=== PATIENT | female | born 1980 | race African-American/Black ===

== ENCOUNTER 2018-11-19 23:18 | Inpatient (IN) | payer MEDICAID ==
[~2018-11-19] VITALS: Ht 170.2 cm; Wt 84.8 kg
[2018-11-20] MEDS ORDERED: NALOXONE HCL 0.4 MG/ML 1ML VIAL IM PRN (03:45)
[2018-11-20] MEDS ORDERED: LIDOCAINE HCL 1% 20ML VIAL (Pyxis) INJ INFIL SCH (03:45)
[2018-11-20] MEDS ORDERED: BUTORPHANOL TARTRATE 2 MG/ML VIAL IV PRN (03:45)
[2018-11-20] MEDS: LACTATED RINGERS 1,000 ML IV SCH ×2 (04:12→08:46)
[2018-11-20] MEDS ORDERED: PENICILLIN G POTASSIUM 5 MMU in DEXT 5% WATER 100 ML IV SCH (04:15)
[2018-11-20 04:43] LABS: INR 0.9; PARTIAL THROMBOPLASTIN TIME 22.3 sec (23.4-31.0); PROTHROMBIN TIME 9.6 sec (9.6-11.0)
[2018-11-20 04:44] LABS: CLARITY URINE CLEAR (CLEAR); COLOR URINE YELLOW (YELLOW); KETONES URINE NEGATIVE (NEGATIVE); LEUKOCYTE ESTERASE URINE 1+ (NEGATIVE); NITRITE URINE NEGATIVE (NEGATIVE); OCCULT BLOOD URINE NEGATIVE (NEGATIVE); PH URINE 5.5 (4.5-8.0); PROTEIN URINE NEGATIVE (NEGATIVE); SPECIFIC GRAVITY URINE 1.017 (1.005-1.030)
[2018-11-20 04:55] LABS: HEMATOCRIT. 28.6 % (36.0-48.0); HEMOGLOBIN. 9.1 g/dL (12.0-16.0); MEAN CORPUSCULAR HEMOGLOBIN 24.3 pg (28.0-32.0); MEAN CORPUSCULAR VOLUME 76.6 fL (81.0-99.0); MEAN PLATELET VOLUME 8.7 fl (7.4-10.4); PLATELET 222 x1000/uL (130-400); RED BLOOD CELL COUNT 3.74 mill/uL (4.2-5.4); RED CELL DISTRIBUTION WIDTH 18.7 % (11.6-14.6)
[2018-11-20 05:02] LABS: *AMPHETAMINES SCREEN URINE NEGATIVE (NEGATIVE); *BARBITURATES SCREEN URINE NEGATIVE (NEGATIVE); *BENZODIAZEPINES SCREEN URINE NEGATIVE (NEGATIVE)
[2018-11-20 05:03] LABS: *COCAINE SCREEN URINE NEGATIVE (NEGATIVE); METHADONE URINE SCREEN NEGATIVE (NEGATIVE); OPIATES URINE SCREEN NEGATIVE (NEGATIVE); PHENCYCLIDINE URINE SCREEN NEGATIVE (NEGATIVE)
[2018-11-20 05:04] LABS: CANNABINOID URINE SCREEN NEGATIVE (NEGATIVE)
[2018-11-20 05:10] LABS: HEPATITIS B SURFACE ANTIGEN NEGATIVE
[2018-11-20 06:02] LABS: NUCLEATED RED BLOOD CELLS 1 /100 WBC
[2018-11-20 06:03] LABS: PLATELET ESTIMATE NORMAL
[2018-11-20] MEDS ORDERED: PENICILLIN G POTASSIUM 2.5 MMU in DEXTROSE 5% WATER 50 ML IV SCH (08:00)
[2018-11-20] MEDS ORDERED: CITRIC ACID/SODIUM CITRATE SOLN 30ML UDC PO NR (08:39)
[2018-11-20] MEDS ORDERED: MORPHINE SULFATE/PF 1MG/ML 10ML AMP ONE (09:12)
[2018-11-20] MEDS ORDERED: FENTANYL CITRATE/PF 50MCG/ML 2ML VIAL ONE ×3 (09:12→09:40)
[2018-11-20] MEDS ORDERED: KETAMINE HCL 50 MG/ML 10ML ONE (09:22)
[2018-11-20] MEDS ORDERED: MIDAZOLAM HCL 2 MG/2 ML VIAL ONE ×3 (09:29→09:56)
[2018-11-20] MEDS ORDERED: PROPOFOL 200MG/20ML VIAL IV ONE (09:56)
[2018-11-20] MEDS ORDERED: HYDROMORPHONE HCL/PF 2MG/ML (OR) ONE (10:05)
[2018-11-20] MEDS ORDERED: HYDROMORPHONE HCL/PF 2MG/ML CPJ IM PRN (10:15)
[2018-11-20] MEDS ORDERED: LANOLIN OINT 7GM TUBE TOP PRN (10:15)
[2018-11-20] MEDS ORDERED: BISACODYL 10MG SUPP PR PRN (10:15)
[2018-11-20] MEDS ORDERED: INFLUENZA VIRUS VACCINE(AFLURIA) 0.5ML SYR IM ONE (10:15)
[2018-11-20] MEDS ORDERED: ONDANSETRON HCL 4MG/2ML INJ IV PRN ×2 (10:15→10:45)
[2018-11-20] MEDS ORDERED: IBUPROFEN 400MG TABLET PO PRN (10:15)
[2018-11-20] MEDS ORDERED: HYDROCODONE/ACETAMINOPHEN 5/325MG TABLET PO PRN (10:15)
[2018-11-20] MEDS ORDERED: TETANUS, DIPHTHERIA, PERTUSSIS VAC/PF 0.5ML (>7YR OLD) IM ONE (10:15)
[2018-11-20] MEDS ORDERED: DIPHENHYDRAMINE 25MG CAPSULE PO PRN (10:15)
[2018-11-20] MEDS ORDERED: MEPERIDINE HCL/PF 25MG/ML CPJ IV PRN (10:45)
[2018-11-20] MEDS ORDERED: HYDROMORPHONE HCL/PF 2MG/ML CPJ IV PRN (10:45)
[2018-11-20] MEDS ORDERED: LABETALOL 5MG/ML SYR 20 MG/4 ML SYRINGE IV PRN (10:45)
[2018-11-20] MEDS: KETOROLAC 15MG/ML VIAL IV PRN ×2 (12:32→18:31)
[2018-11-20 13:00] VITALS: BP 111/68
[2018-11-20 13:07] LABS: BG BASE EXCESS -4.5 mmol/L (-2.0-2.0); BG FRACTION INSPIRED OXYGEN 21; BG HCO3 ACT 21.4 mmol/L (22.0-26.0); BG PCO2 42.6 mmHg (35.0-45.0); BG PH 7.319 (7.350-7.450); BG PO2 < 30.3 mmHg (75.0-100.0); BG SAMPLE SITE CORD; BG VENT MODE ROOM AIR
[2018-11-20 13:08] LABS: BG BASE EXCESS -3.8 mmol/L (-2.0-2.0); BG FRACTION INSPIRED OXYGEN 21; BG HCO3 ACT 21.4 mmol/L (22.0-26.0); BG OXYGEN SATURATION 69.3 % (92.0-98.5); BG PCO2 39.3 mmHg (35.0-45.0); BG PH 7.353 (7.350-7.450); BG PO2 37.7 mmHg (75.0-100.0); BG SAMPLE SITE CORD; BG VENT MODE ROOM AIR
[2018-11-20 13:15] VITALS: BP 114/73
[2018-11-20 13:30] VITALS: BP 105/61
[2018-11-20] MEDS: DEXT 5%/LR + PITOCIN 20UNITS/L 1,000 ML IV SCH ×2 (14:55→22:49)
[2018-11-20 16:00] VITALS: BP 116/76
[2018-11-20] MEDS: MAGNESIUM/ALUMINUM HYDROXIDE/SIMETHICONE 30ML UDC PO SCH (17:30)
[2018-11-20] MEDS: SIMETHICONE 80MG TABLET CHEW PO SCH (18:00)
[2018-11-20 21:15] VITALS: BP 132/75
[2018-11-21] MEDS: KETOROLAC 15MG/ML VIAL IV PRN (03:28)
[2018-11-21 04:00] VITALS: BP 126/78
[2018-11-21 08:00] VITALS: BP 112/69
[2018-11-21] MEDS: IBUPROFEN 800MG TABLET PO PRN ×4 (08:42→21:55)
[2018-11-21] MEDS: PRENATAL VIT/FE FUMARATE/FA TABLET PO SCH (08:42)
[2018-11-21] MEDS: SIMETHICONE 80MG TABLET CHEW PO SCH ×5 (08:42→21:09)
[2018-11-21] MEDS: FERROUS SULFATE 325MG TABLET PO SCH ×3 (08:42→18:16)
[2018-11-21] MEDS: MAGNESIUM/ALUMINUM HYDROXIDE/SIMETHICONE 30ML UDC PO SCH ×5 (08:43→21:09)
[2018-11-21 09:11] LABS: BASOPHILS % 0.4 % (0.0-2.0); EOSINOPHILS % 1.3 % (0.0-5.0); HEMATOCRIT. 24.6 % (36.0-48.0); HEMOGLOBIN. 7.7 g/dL (12.0-16.0); LYMPHOCYTES % 7.4 % (20.0-50.0); MEAN CORPUSCULAR HEMOGLOBIN 23.8 pg (28.0-32.0); MEAN CORPUSCULAR VOLUME 76.2 fL (81.0-99.0); MEAN PLATELET VOLUME 8.7 fl (7.4-10.4); MONOCYTES % 5.2 % (2.0-8.0); NEUTROPHILS % 85.7 % (40.0-76.0); PLATELET 178 x1000/uL (130-400); RED BLOOD CELL COUNT 3.23 mill/uL (4.2-5.4); RED CELL DISTRIBUTION WIDTH 18.9 % (11.6-14.6)
[2018-11-21 16:00] VITALS: BP 96/62
[2018-11-21] MEDS: DEXT 5%/LR + PITOCIN 20UNITS/L 1,000 ML IV SCH ×3 (19:31→20:43)
[2018-11-21 20:16] VITALS: BP 110/70
[2018-11-21] MEDS: DOCUSATE SODIUM 100MG CAPSULE PO SCH (21:09)
[2018-11-22] MEDS: DEXT 5%/LR + PITOCIN 20UNITS/L 1,000 ML IV SCH ×3 (02:15→11:31)
[2018-11-22 04:29] VITALS: BP 110/67
[2018-11-22 08:00] VITALS: BP 109/69
[2018-11-22] MEDS: IBUPROFEN 800MG TABLET PO PRN ×2 (10:07→17:10)
[2018-11-22] MEDS: PRENATAL VIT/FE FUMARATE/FA TABLET PO SCH (10:07)
[2018-11-22] MEDS: FERROUS SULFATE 325MG TABLET PO SCH ×3 (10:07→17:10)
[2018-11-22] MEDS: MAGNESIUM/ALUMINUM HYDROXIDE/SIMETHICONE 30ML UDC PO SCH ×4 (10:07→20:56)
[2018-11-22] MEDS: SIMETHICONE 80MG TABLET CHEW PO SCH ×4 (10:08→20:56)
[2018-11-22 12:00] VITALS: BP 103/66
[2018-11-22 16:00] VITALS: BP 100/71
[2018-11-22] MEDS: DOCUSATE SODIUM 100MG CAPSULE PO SCH (20:55)
[2018-11-22 22:00] VITALS: BP 107/71
[2018-11-23] VITALS: BP 105/72
[2018-11-23 06:00] VITALS: BP 111/72
[2018-11-23 07:36] VITALS: BP 116/75
[2018-11-23] MEDS: MAGNESIUM/ALUMINUM HYDROXIDE/SIMETHICONE 30ML UDC PO SCH (09:14)
[2018-11-23] MEDS: SIMETHICONE 80MG TABLET CHEW PO SCH (09:15)
[2018-11-23] MEDS: FERROUS SULFATE 325MG TABLET PO SCH (09:15)
[2018-11-23] MEDS: PRENATAL VIT/FE FUMARATE/FA TABLET PO SCH (09:15)
[2018-11-23] MEDS: IBUPROFEN 800MG TABLET PO PRN (09:15)
== END 2018-11-23 11:30 | disposition home or self-care (01) | DRG 540 ==
LOC: 8 EST LDRP 23:18 → OBSVTOIN 23:18 → 8EST 11-20 13:47
PROVIDERS: ADMIT Specialist; ATTEND Specialist
PROC: 10D00Z1 Extraction of Products of Conception, Low, Open Approach (ICD-10-PCS; principal; 2018-11-20)
DX: O34.13 Maternal care for benign tumor of corpus uteri, third trimester (principal); D25.9 Leiomyoma of uterus, unspecified; O99.02 Anemia complicating childbirth; D64.9 Anemia, unspecified; O69.1XX0 Labor and delivery complicated by cord around neck, with compression, not applicable or unspecified; O32.1XX0 Maternal care for breech presentation, not applicable or unspecified; Z3A.38 38 weeks gestation of pregnancy; Z37.0 Single live birth; Z82.5 Family history of asthma and other chronic lower respiratory diseases
CPT/HCPCS: 36415; 36600; 76815; 80305; 81003; 82805; 86592; 86703; 86762; 86850; 86900; 86920; 87340; 88307; 90715; 99281; G0378; J0595; J1170; J1885; J2250; J2274; J2540; J2590; J2704; J3010; J3490; J7060; J7120; A4315

== ENCOUNTER 2021-04-18 20:14 | Emergency (ER) | payer MEDICAID ==
[~2021-04-18] VITALS: Ht 170.2 cm; Wt 64.0 kg
[2021-04-18] MEDS ORDERED: TETANUS, DIPHTHERIA, PERTUSSIS VAC/PF 0.5ML (>10YR OLD) IM ONE (22:15)
[2021-04-18] MEDS ORDERED: LIDOCAINE HCL/EPINEPHRINE 1%-EPI 1:100,000 20 ML VIAL INFIL ONE (22:15)
[2021-04-18] MEDS ORDERED: BACITRACIN ZINC OINT UDPKT TOP ONE (22:15)
[2021-04-18] MEDS ORDERED: LIDOCAINE HCL/EPINEPHRINE 1%-EPI 1:100,000 10 ML VIAL INFIL ONE (22:30)
[2021-04-18 23:26] VITALS: BP 115/87
== END 2021-04-18 23:37 | disposition home or self-care (01) ==
LOC: ER 20:14
DX: S01.81XA Laceration without foreign body of other part of head, initial encounter (principal); X99.8XXA Assault by other sharp object, initial encounter; Y93.89 Activity, other specified; Y92.89 Other specified places as the place of occurrence of the external cause; Y99.8 Other external cause status
CPT/HCPCS: 12011; 90471; 90715; 99283; J3490